=== PATIENT | male | born 1990 | race Caucasian/White ===

== ENCOUNTER → 2017-03-30 07:13 | Emergency (ER) | payer BC, MEDICAID ==
[~2017-03-30 07:13] MED LIST: Saline NASAL SPRAY 0.65%* BTL LEFT NARE ONE
[2017-03-30 08:26] VITALS: BP 107/77
--- NOTE | 2017-04-05 10:34 | ED ---
Andrew Álvarez Angela, scribed for Reji Vaughn MD on 03/30/17 at 0754 . Throat Pain/Nasal Congestion - HPI Summary HPI Summary: This pt is a 26 y/o male presenting to [facility] c/o epistaxis from the left naris for the past 1 week upon waking up. Pt reports he wakes up with his left nostril filled with harden blood, which he has to clean. Denies any other nasal discharge. He denies having epistaxis during the day. Pt describes tingling up his nose, headache, and light headedness. Pt denies putting anything in his nose. He denies any recent cold. Pt has not been prone to epistaxis in the past. His PCP is Dr. Escobar. Pt lives in an apartment where he uses a vent heater. No PMHx. - History of Current Complaint Chief Complaint: EDGeneral Time Seen by Provider: 03/30/17 07:47 Hx Obtained From: Patient Onset/Duration: Lasting Days, Still Present Severity: Moderate Associated Signs And Symptoms: Positive: Negative Cough: None - Allergies/Home Medications Allergies/Adverse Reactions: Allergies Allergy/AdvReac Type Severity Reaction Status Date / Time Codeine Allergy Vomiting Verified 03/30/17 07:23 PMH/Surg Hx/FS Hx/Imm Hx Endocrine/Hematology History: Denies: Hx Diabetes Cardiovascular History: Denies: Hx Congestive Heart Failure, Hx Hypertension, Hx Pacemaker/ICD, Other Cardiovascular Problems/Disorders Respiratory History: Reports: Hx Pneumonia Denies: Hx Asthma, Hx Chronic Obstructive Pulmonary Disease (COPD), Other Respiratory Problems/Disorders History: Reports: Hx Kidney Stones Denies: Hx Renal Disease Psychiatric History: Denies: Hx Eating Disorder, Hx of Violent Episodes Against Others - Immunization History Date of Tetanus Vaccine: Unk Date of Influenza Vaccine: NONE Infectious Disease History: No Infectious Disease History: Denies: History Other Infectious Disease, Traveled Outside the [place] in Last 30 Days - Family History Known Family History: Positive: Other - [place] - Social History Alcohol Use: Occasionally Hx Substance Use: No Substance Use Type: Reports: None Hx Tobacco Use: Yes Smoking Status (MU): Light Every Day Tobacco Smoker Type: Smokeless Tobacco Amount Used/How Often: 1 can/day Length of Time of Smoking/Using Tobacco: 9 years Have You Smoked in the Last Year: No Review of Systems Negative: Fever, Chills Negative: Erythema Positive: Epistaxis. Negative: Sore Throat Negative: Chest Pain Negative: Shortness Of Breath, Cough Negative: Abdominal Pain, Vomiting, Nausea Negative: dysuria, hematuria Negative: Myalgia, Edema Negative: Rash Neurological: Other - NEG: dizziness POS:light headedness Positive: Headache, Paresthesia - up the nose All Other Systems Reviewed And Are Negative: Yes Physical Exam - Summary Physical Exam Summary: Constitutional: Well-developed, Well-nourished, Alert. (-) Distressed Skin: Warm, Dry HENT: Normocephalic; Atraumatic. A 1 inch scratch on the septum. Eyes: Conjunctiva normal Neck: Musculoskeletal ROM normal neck. (-) JVD, (-) Stridor, (-) Tracheal deviation Cardio: Rhythm regular, rate normal, Heart sounds normal; Intact distal pulses; The pedal pulses are 2+ and symmetric. Radial pulses are 2+ and symmetric. (-) Murmur Pulmonary/Chest wall: Effort normal. (-) Respiratory distress, (-) Wheezes, (-) Rales Abd: Soft, (-) Tenderness, (-) Distension, (-) Guarding, (-) Rebound Musculoskeletal: (-) Edema Lymph: (-) Cervical adenopathy Neuro: Alert, Oriented x3 Psych: Mood and affect Normal Triage Information Reviewed: Yes Vital Signs On Initial Exam: Initial Vitals Temp Pulse Resp BP Pulse Ox 98.5 F 72 16 120/72 98 03/30/17 07:23 03/30/17 07:23 03/30/17 07:23 03/30/17 07:23 03/30/17 07:23 Vital Signs Reviewed: Yes Diagnostics - Vital Signs Vital Signs Temp Pulse Resp BP Pulse Ox 03/30/17 07:23 98.5 F 72 16 120/72 98 - Laboratory Lab Statement: Any lab studies that have been ordered have been reviewed, and results considered in the medical decision making process. EENT Course/Dx - Course Course Of Treatment: This pt is a 26 y/o male presenting to [facility] c/o epistaxis from the left naris for the past 1 week upon waking up. Pt reports he wakes up with his left nostril filled with harden blood, which he has to clean. Denies any other nasal discharge. He denies having epistaxis during the day. Pt describes tingling up his nose, headache, and light headedness. Pt denies putting anything in his nose. He denies any recent cold. Pt has not been prone to epistaxis in the past. In the ED course, saline nasal spray was used to clean his left nare. Pt was advised to use a humidifier at home. He will be discharged to home and instructed to follow up with his PCP in 3-5 days. - Diagnoses Provider Diagnoses: nasal septal abrasion, Epistaxis Discharge - Discharge Plan Condition: Stable Disposition: HOME Patient Education Materials: Nosebleed (ED) Referrals: Eddie Escobar DO [Primary Care Provider] - Additional Instructions: Please follow up with Dr. Escobar in 3-5 days. Use a humidifier in your room. RETURN TO THE EMERGENCY DEPARTMENT FOR CHANGING OR WORSENING SYMPTOMS (such as fevers or green nasal discharge). The documentation as recorded by the Andrew munoz Angela accurately reflects the service I personally performed and the decisions made by , Reji Vaughn MD.
== END | disposition home or self-care (01) ==
LOC: ED 07:13
DX: R04.0 Epistaxis (principal); S00.31XA Abrasion of nose, initial encounter; Z88.5 Allergy status to narcotic agent; F17.220 Nicotine dependence, chewing tobacco, uncomplicated; X58.XXXA Exposure to other specified factors, initial encounter; Y92.9 Unspecified place or not applicable
CPT/HCPCS: 99281

== ENCOUNTER 2017-06-03 13:15 | Emergency (ER) | payer BC ==
[2017-06-03] MEDS ORDERED: Acetaminophen TAB* 325 MG PO ONE (14:51)
[2017-06-03] MEDS ORDERED: GuaiFENesin DM sugar free* 5 ML UDC PO ONE (14:51)
[2017-06-03 16:52] VITALS: BP 107/57
--- NOTE | 2017-06-03 17:02 | ED ---
Influenza-Like Illness - HPI Summary HPI Summary: Patient is an otherwise healthy 27-year-old male with a chief complaint of feeling ill 2 days. Endorses influenza-like symptoms, including muscle aches, sweats, chills, cough, congestion. He was sent home from work today due to feeling ill. Endorses diffuse myalgias. He states he works at a [employer] and endorses sick contacts, specifically the flu. Denies any medication use for relief of symptoms. Denies urinary symptoms, back pain, abdominal pain. Endorses some nausea with one episode vomiting, but denies this currently. Lungs are aggravated by nothing and relieved with nothing. - History of Current Complaint Chief Complaint: EDFluSymptoms Time Seen by Provider: 06/03/17 14:38 Hx Obtained From: Patient Onset/Duration: Sudden Onset Severity: Moderate Associated Signs & Symptoms: F/C, Myalgia, Cough, Sore Throat, Nasal Congestion , Headache, Vomiting Related Hx: Possible Flu/Infectious Exposure - Risk Factors Influenza Risk Factors: Negative - Allergy/Home Medications Allergies/Adverse Reactions: Allergies Allergy/AdvReac Type Severity Reaction Status Date / Time MS Codeine [Codeine] Allergy Vomiting Verified 03/30/17 07:23 PMH/Surg Hx/FS Hx/Imm Hx Previously Healthy: Yes Endocrine/Hematology History: Denies: Hx Diabetes Cardiovascular History: Denies: Hx Congestive Heart Failure, Hx Hypertension, Hx Pacemaker/ICD, Other Cardiovascular Problems/Disorders Respiratory History: Reports: Hx Pneumonia Denies: Hx Asthma, Hx Chronic Obstructive Pulmonary Disease (COPD), Other Respiratory Problems/Disorders History: Reports: Hx Kidney Stones Denies: Hx Renal Disease Psychiatric History: Denies: Hx Eating Disorder, Hx of Violent Episodes Against Others - Immunization History Date of Tetanus Vaccine: Unk Date of Influenza Vaccine: NONE Hx Pertussis Vaccination: No Immunizations Up to Date: Unable to Obtain/Confirm Infectious Disease History: No Infectious Disease History: Denies: History Other Infectious Disease, Traveled Outside the [place] in Last 30 Days - Family History Known Family History: Positive: None, Other - [place] - Social History Occupation: Employed Full-time Lives: With Family Alcohol Use: Occasionally Hx Substance Use: No Substance Use Type: Reports: None Hx Tobacco Use: Yes Smoking Status (MU): Light Every Day Tobacco Smoker Type: Smokeless Tobacco Amount Used/How Often: 1 can/day Length of Time of Smoking/Using Tobacco: 9 years Have You Smoked in the Last Year: No Review of Systems Positive: Fever, Chills, Fatigue Eyes: Negative Positive: Sore Throat, Nasal Discharge Cardiovascular: Negative Positive: Cough Genitourinary: Negative Positive: no symptoms reported, see HPI Positive: Myalgia Skin: Negative Positive: Headache, Weakness Psychological: Normal All Other Systems Reviewed And Are Negative: Yes Physical Exam Triage Information Reviewed: Yes Vital Signs On Initial Exam: Initial Vitals Temp Pulse Resp BP Pulse Ox 98.0 F 79 18 121/62 98 06/03/17 13:19 06/03/17 13:19 06/03/17 13:19 06/03/17 13:19 06/03/17 13:19 Vital Signs Reviewed: Yes Appearance: Positive: Well-Nourished, Ill-Appearing Skin: Positive: Warm, Skin Color Reflects Adequate Perfusion Head/Face: Positive: Normal Head/Face Inspection Eyes: Positive: EOMI, IVON Neck: Positive: Supple, No Lymphadenopathy Respiratory/Lung Sounds: Positive: Clear to Auscultation, Breath Sounds Present Cardiovascular: Positive: RRR, Pulses are Symmetrical in both Upper and Lower Extremities Musculoskeletal: Positive: Normal, Strength/ROM Intact Neurological: Positive: Speech Normal Psychiatric: Positive: Normal, Affect/Mood Appropriate AVPU Assessment: Alert Diagnostics - Vital Signs Vital Signs Temp Pulse Resp BP Pulse Ox 06/03/17 16:51 99.0 F 61 14 107/57 97 06/03/17 13:19 98.0 F 79 18 121/62 98 - Laboratory Lab Results: Lab Results 06/03/17 Range/Units 15:04 Influenza A (Rapid) Negative (Negative) Influenza B (Rapid) Negative (Negative) Lab Statement: Any lab studies that have been ordered have been reviewed, and results considered in the medical decision making process. Flu Symptom Course/Dx - Course Course Of Treatment: During the course of treatment, the patient is evaluated for influenza-like symptoms. Influenza swab obtained and is negative. Given Robitussin and Tylenol with relief of symptoms. He remains weak, but denies nausea/vomiting or other symptoms. I believe this is a viral syndrome. He is encouraged Robitussin and Tylenol and rest. No given for work. He is okay with this plan and discharged. He is stable and vital signs are stable on discharge. - Diagnoses Differential Diagnosis/HQI/PQRI: Positive: Influenza Provider Diagnoses: Viral syndrome Discharge - Discharge Plan Condition: Stable Disposition: HOME Patient Education Materials: Viral Syndrome (ED) Forms: *Work Release Referrals: Eddie Escobar DO [Primary Care Provider] - Additional Instructions: Tylenol or ibuprofen, use intermittently for body aches Robitussin [id number] for cough Rest
== END 2017-06-03 16:30 | disposition home or self-care (01) ==
LOC: ED 13:15
DX: B34.9 Viral infection, unspecified (principal); J02.9 Acute pharyngitis, unspecified; R05 Cough; R51 Headache; R11.10 Vomiting, unspecified; F17.210 Nicotine dependence, cigarettes, uncomplicated
CPT/HCPCS: 87502; 99282; A9270-GY

== ENCOUNTER 2017-06-19 15:22 | Emergency (ER) | payer BC ==
[2017-06-19] MEDS ORDERED: Cephalexin CAP* 500 MG PO ONE (15:58)
--- NOTE | 2017-06-19 16:05 | ED ---
Upper Extremity Pain - HPI Summary HPI Summary: 27M presents with paris to right thumb couple days ago. He states he burned it on a skillet. He denies any blistering to the area. He admits to numbness in his fingers. He noticed some redness underneath the nail today. He denies any fevers. He states the area has swollen up. He has been elevating and taking ibuprofen. There is a bruise located under his finger. He believes his immunizations are up-to-date. - History of Current Complaint Chief Complaint: EDExtremityUpper Stated Complaint: RT HAND SWELLING Time Seen by Provider: 06/19/17 15:35 - Allergies/Home Medications Allergies/Adverse Reactions: Allergies Allergy/AdvReac Type Severity Reaction Status Date / Time codeine Allergy Hives Verified 06/19/17 15:29 PMH/Surg Hx/FS Hx/Imm Hx Endocrine/Hematology History: Denies: Hx Diabetes Cardiovascular History: Denies: Hx Congestive Heart Failure, Hx Hypertension, Hx Pacemaker/ICD, Other Cardiovascular Problems/Disorders Respiratory History: Reports: Hx Pneumonia Denies: Hx Asthma, Hx Chronic Obstructive Pulmonary Disease (COPD), Other Respiratory Problems/Disorders History: Reports: Hx Kidney Stones Denies: Hx Renal Disease Psychiatric History: Denies: Hx Eating Disorder, Hx of Violent Episodes Against Others - Immunization History Date of Tetanus Vaccine: Unk Date of Influenza Vaccine: NONE Infectious Disease History: No Infectious Disease History: Denies: History Other Infectious Disease, Traveled Outside the [place] in Last 30 Days - Family History Known Family History: Positive: None, Other - [place] - Social History Alcohol Use: Occasionally Hx Substance Use: No Substance Use Type: Reports: None Hx Tobacco Use: Yes Smoking Status (MU): Light Every Day Tobacco Smoker Type: Smokeless Tobacco Amount Used/How Often: 1 can/day Length of Time of Smoking/Using Tobacco: 9 years Have You Smoked in the Last Year: No Review of Systems Negative: Fever Negative: Chest Pain Negative: Shortness Of Breath Positive: Edema - right thumb Positive: Other - burn right thumb All Other Systems Reviewed And Are Negative: Yes Physical Exam Triage Information Reviewed: Yes Vital Signs On Initial Exam: Initial Vitals Temp Pulse Resp BP Pulse Ox 97.5 F 64 16 120/83 100 06/19/17 15:29 06/19/17 15:29 06/19/17 15:29 06/19/17 15:29 06/19/17 15:29 Vital Signs Reviewed: Yes Appearance: Positive: Well-Appearing Skin: Positive: Warm, Dry, Other - 2nd degree burn to right thumb, some erythema under right thumb nail bed, mild edema around nail bed, pinpoint ecchymosis to tip of right thumb nail Head/Face: Positive: Normal Head/Face Inspection Eyes: Positive: Normal, Conjunctiva Clear Respiratory/Lung Sounds: Positive: Clear to Auscultation, Breath Sounds Present Cardiovascular: Positive: Normal, RRR Musculoskeletal: Positive: Edema Right - thumb, Other - good pulses, capillary refill<2 secs Neurological: Positive: Normal Psychiatric: Positive: Normal Diagnostics - Vital Signs Vital Signs Temp Pulse Resp BP Pulse Ox 06/19/17 15:29 97.5 F 64 16 120/83 100 - Laboratory Lab Statement: Any lab studies that have been ordered have been reviewed, and results considered in the medical decision making process. Course/Dx - Course Course Of Treatment: 27M presents with paris to right thumb couple days ago. He states he burned it on a skillet. He denies any blistering to the area. He admits to numbness in his fingers. He noticed some redness underneath the nail today. He denies any fevers. He states the area has swollen up. He has been elevating and taking ibuprofen. There is a bruise located under his finger. He believes his immunizations are up-to-date. On exam has burn to that of right thumb. Some edema present. Capillary refill less than 2 seconds. No swelling around the nail bed. Could've potentially become paronychia so we will start treatment with Keflex. Patient understands and agrees with plan. - Diagnoses Differential Diagnosis/HQI/PQRI: Positive: Other - burn, paronychia., cellulitis Provider Diagnoses: Burn of right thumb Discharge - Sign-Out/Discharge Documenting (check all that apply): Discharge - Discharge Plan Condition: Good Disposition: HOME Prescriptions: Cephalexin CAP* [Keflex CAP*] 500 mg PO BID #[id number] cap Patient Education Materials: Second Degree Burn (ED) Referrals: Mima Ceballos PATTERN FINISHER [Primary Care Provider] - Additional Instructions: Take keflex twice a day for 7 days Ice, elevate Take Tylenol and ibuprofen every 6 hours for pain Return to ED if develop any new or worsening symptoms - Billing Disposition and Condition Condition: GOOD Disposition: HOME
[2017-06-19 16:31] VITALS: BP 124/87
== END 2017-06-19 16:30 | disposition home or self-care (01) ==
LOC: ED 15:22
DX: T23.211A Burn of second degree of right thumb (nail), initial encounter (principal); X19.XXXA Contact with other heat and hot substances, initial encounter; Y93.9 Activity, unspecified; Y92.9 Unspecified place or not applicable; Z88.5 Allergy status to narcotic agent; F17.220 Nicotine dependence, chewing tobacco, uncomplicated
CPT/HCPCS: 99281; A9270-GY

== ENCOUNTER 2020-09-20 19:13 | Inpatient (IN) ==
[2020-09-20 20:03] LABS: ABS Lymphocytes 1.3 10^3/ul (1.0-4.8); ABS Monocytes 0.3 10^3/ul (0-0.8); ABS Neutrophils 1.8 10^3/ul (1.5-7.7); Eosinophil % 1.1 %; Hematocrit 43 % (42-52); Lymphocyte % 38.5 %; Mean Corpuscular HGB Conc 35 g/dL (31-36); Mean Corpuscular Hemoglobin 30 pg (27-31); Mean Corpuscular Volume 88 fL (80-94); Mean Platelet Volume 7.6 fL (7.4-10.4); Platelet Count 246 10^3/uL (150-450); Red Blood Count 4.95 10^6 /uL (4.18-5.48); Red Cell Distribution Width 15 % (10-15); White Blood Count 3.5 10^3/uL (3.5-10.8)
[2020-09-20 20:17] LABS: Urine Appearance Clear; Urine Bilirubin Negative (Negative); Urine Blood Negative (Negative); Urine Color Yellow; Urine Glucose Negative (Negative); Urine Ketones Negative (Negative); Urine Nitrite Negative (Negative); Urine Protein Negative (Negative); Urine Specific Gravity 1.024 (1.002-1.030); Urine Urobilinogen Negative (Negative)
[2020-09-20 20:20] LABS: ALT 21 U/L (7-52); AST 20 U/L (13-39); Albumin 4.5 g/dL (3.2-5.2); Albumin/Globulin Ratio 1.8 (1-3); Alkaline Phosphatase 74 U/L (35-149); Anion Gap 5 mmol/L (2-11); Blood Urea Nitrogen 17 mg/dL (6-24); CO2 Carbon Dioxide 28 mmol/L (22-32); Calcium 9.3 mg/dL (8.6-10.3); Chloride 103 mmol/L (101-111); EGFR African American 114.2 (>60); EGFR Non-African American 94.4 (>60); Globulin 2.5 g/dL (2-4); Glucose 64 mg/dL (70-100); Potassium 3.5 mmol/L (3.5-5.0); Sodium 136 mmol/L (135-145)
[2020-09-20 20:37] LABS: Urine Benzodiazepine Screen None Detected (None Detect); Urine Cannabinoids Screen None Detected (None Detect); Urine Opiates Screen None Detected (None Detect)
[2020-09-20 20:48] LABS: Acetaminophen < 15 mcg/mL; Alcohol, S < 10 mg/dL (<10); Salicylate < 2.50 mg/dL (<30)
[2020-09-20 21:03] LABS: TSH Ultra Thyroid Stim Horm 2.49 mcIU/mL (0.34-5.60)
[2020-09-21] MEDS ORDERED: Al Hydrox/Mg Hydrox/Simet LIQ 30 ML UDC PO PRN (05:31)
[2020-09-21] MEDS: Nicotine PATCH 14 MG/24 HR PATCH TRANSDERM SCH ×2 (08:50→14:07)
[2020-09-21] MEDS: Vitamin THERAPEUTIC TAB PO SCH (08:50)
[2020-09-21 14:04] LABS: Free T4 0.99 ng/dL (0.61-1.12)
[2020-09-21] MEDS: CMCS:Doxepin 25 mg CAP (NF) PO SCH (21:43)
[2020-09-22 08:11] LABS: HDL Cholesterol 38.9 mg/dL
[2020-09-22] MEDS: Nicotine PATCH 14 MG/24 HR PATCH TRANSDERM SCH (08:46)
[2020-09-22] MEDS: Vitamin THERAPEUTIC TAB PO SCH (08:47)
[2020-09-22] MEDS: Nicotine GUM 2MG FRUIT FLAVOR PO PRN ×2 (15:17→17:54)
[2020-09-22] MEDS: CMCS:Doxepin 25 mg CAP (NF) PO SCH (21:30)
[2020-09-23] MEDS: Vitamin THERAPEUTIC TAB PO SCH (08:41)
[2020-09-23] MEDS: Nicotine PATCH 14 MG/24 HR PATCH TRANSDERM SCH (08:42)
[2020-09-23] MEDS: Nicotine GUM 2MG FRUIT FLAVOR PO PRN (16:07)
[2020-09-23] MEDS: CMCS:Doxepin 25 mg CAP (NF) PO SCH (21:06)
[2020-09-24] MEDS: Nicotine PATCH 14 MG/24 HR PATCH TRANSDERM SCH (08:47)
[2020-09-24] MEDS: Vitamin THERAPEUTIC TAB PO SCH (08:48)
[2020-09-24] MEDS: CMCS:Doxepin 25 mg CAP (NF) PO SCH (21:21)
[2020-09-25] MEDS: Vitamin THERAPEUTIC TAB PO SCH (08:21)
[2020-09-25] MEDS: Nicotine PATCH 14 MG/24 HR PATCH TRANSDERM SCH (12:18)
[2020-09-25] MEDS: CMCS:Doxepin 25 mg CAP (NF) PO SCH (21:49)
[2020-09-26] MEDS: Nicotine PATCH 14 MG/24 HR PATCH TRANSDERM SCH (08:45)
[2020-09-26] MEDS: Vitamin THERAPEUTIC TAB PO SCH (08:45)
[2020-09-26] MEDS: CMCS:Doxepin 25 mg CAP (NF) PO SCH (21:17)
[2020-09-27 08:52] VITALS: BP 126/83
[2020-09-27] MEDS: Vitamin THERAPEUTIC TAB PO SCH (08:54)
[2020-09-27] MEDS: Nicotine PATCH 14 MG/24 HR PATCH TRANSDERM SCH (08:54)
[2020-09-27] MEDS ORDERED: Vitamins A & D OINT 42.5 GM TUBE TOPICAL PRN (10:16)
== END 2020-09-27 12:00 | disposition home or self-care (01) ==
LOC: ED 19:13 → BSU 23:30
PROVIDERS: ADMIT Psychiatry & Neurology Psychiatry; ATTEND Psychiatry & Neurology Psychiatry